=== PATIENT | male | born 1975 | race Caucasian/White ===

== ENCOUNTER → 2017-03-24 | Outpatient (CLI) | payer OTHER ==
--- NOTE | 2017-03-24 14:50 | MR ---
EXAMINATION TYPE: MR lumbar spine wo con DATE OF EXAM: 03/24/2017 COMPARISON: NONE HISTORY: low back pain TECHNIQUE: T1 and T2 axial and sagittal images of the lumbar spine are submitted. FINDINGS: There is no abnormal signal seen within the visualized spinal cord or paraspinal soft tissu es. Simple appearing renal cysts. At T12-L1 there is moderate degenerative disc disease and discogenic marrow changes. No disc herniati on or canal stenosis. Neural foramina patent. At L1-2 there is there is moderate degenerative disc disease with no disc herniation. No canal stenos is or foraminal encroachment. At L2-3 there is no degenerative disc disease with or evidence of disc herniation, canal stenosis, or foraminal encroachment. Mild hypertrophic change of the facets. At L3-4 there is no disc herniation or canal stenosis. There is mild broad-based central disc bulging . Neural foramina remain patent. At L4-5 there is moderate facet arthropathy. 6 mm synovial cyst extrinsic to the spinal canal adjacen t to the left facet joint. Broad-based disc bulging greater paracentrally and laterally to the right with mild to moderate right foraminal encroachment. Borderline to mild canal stenosis. At L5-S1 there is severe degenerative disc disease with discogenic marrow changes. Right paracentral disc bulging without canal stenosis. Neural foramina demonstrate very mild bilateral encroachment. IMPRESSION: 1. Multilevel degenerative disc disease with disc bulging at levels L3-S1 and borderline to mild rey l stenosis L4-L5. 2. Multilevel foraminal encroachment.
== END | disposition home or self-care (01) ==
LOC: RADMRIMAIN 14:14
PROVIDERS: ATTEND Anesthesiology Addiction Medicine
DX: M51.27 Other intervertebral disc displacement, lumbosacral region (principal); M51.37 Other intervertebral disc degeneration, lumbosacral region; M48.07 Spinal stenosis, lumbosacral region
CPT/HCPCS: 72148

== ENCOUNTER → 2019-04-26 | Outpatient (CLI) | payer OTHER ==
--- NOTE | 2019-04-26 08:46 | MR ---
MR lumbar spine wo con Low back pain Multiplanar, multiecho imaging of the lumbar spine was obtained without contrast on a 3 Brittney magnet. REFERENCE: Previous study dated 03/24/2017. FINDINGS: Paraspinal soft tissues are normal. Vertebral body height is maintained. There is a mild retrograde listhesis of L5 and S1 as well as L1 on L2, unchanged from previous. Alignment is otherwise normal. Cord signal is normal. The conus ends normally at the level of the L1-2 disc. At T12-L1, there is mild disc space loss and disc desiccation. The intervertebral foramina appear andreina sonably well-maintained. There is a diffuse disc displacement. This is effacing the thecal sac anteri janet. This hypertrophic change and capsulitis in the facets. At L1-2, there is disc space loss and disc desiccation. Intervertebral foramina appear reasonably wel l-maintained. There is a diffuse disc displacement effacing the thecal sac anteriorly. There hypertro phic change and capsulitis within the facets. At L2-3, the intervertebral foramina are well maintained. There is no significant compressive discopa thy. There is mild hypertrophic change and capsulitis within the facets. At L3-4, there is mild disc space loss and disc desiccation. Intervertebral foramina appear well main tained. There is a diffuse disc displacement mildly effacing the thecal sac. There is mild hypertroph ic change within the facets. There is mild trefoiling of the thecal sac. At L4-5, there is mild disc space loss and disc desiccation present. There is a minimal, diffuse disc displacement. There is right-sided intervertebral foraminal narrowing and to a lesser extent left-si ded intervertebral foraminal narrowing. There is a diffuse disc displacement effacing the thecal sac anteriorly. There are fairly marked hypertrophic changes and capsulitis within the facets. There is t refoiling of the thecal sac. At L5-S1, there is near complete loss of the disc space. There is disc desiccation. There is mild, bi lateral intervertebral foraminal narrowing. There is a diffuse disc displacement. There are hypertrop hic changes and capsulitis within the facets. IMPRESSION: 1. DIFFUSE DEGENERATIVE DISC DISEASE AND FACET ARTHROPATHY. 2. BILATERAL INTERVERTEBRAL FORAMINAL NARROWING, L4-5. 3. VARYING DEGREES OF CENTRAL CANAL COMPROMISE, MOST MARKED, L4-5.
== END | disposition home or self-care (01) ==
LOC: RADMRIMAIN 07:08
PROVIDERS: ATTEND Psychiatry & Neurology Neurology
DX: M99.73 Connective tissue and disc stenosis of intervertebral foramina of lumbar region (principal); M51.36 Other intervertebral disc degeneration, lumbar region; M46.96 Unspecified inflammatory spondylopathy, lumbar region
CPT/HCPCS: 72148

== ENCOUNTER → 2020-07-28 | Outpatient (CLI) | payer OTHER ==
--- NOTE | 2020-07-28 16:26 | MR ---
EXAMINATION TYPE: MR knee LT wo con DATE OF EXAM: 07/28/2020 COMPARISON: Outside left knee x-ray July 01, 2020 HISTORY: LT knee pain per order. Painful behind knee along with inner and outer aspect with swelling for 6 to 8 months after twisting injury per patient TECHNIQUE: Multiplanar, multisequence imaging of the left knee is performed without IV contrast. FINDINGS: MEDIAL MENISCUS: Posterior horn shows oblique and globular increased signal, extending towards the ce ntral body, there is extension to inferior surface central aspect coronal image 21 and sagittal image 25. LATERAL MENISCUS: Anterior and posterior horns are intact without tear. CRUCIATE LIGAMENTS: The anterior and posterior cruciate ligaments are intact and unremarkable. COLLATERAL LIGAMENTS: The medial collateral ligament and lateral collateral ligament complex are inta ct and unremarkable. EXTENSOR MECHANISM: Visualized quadriceps and patellar tendons are intact. EFFUSION: Moderate to large size suprapatellar joint effusion. POPLITEAL CYST: No popliteal/devi cyst. TRICOMPARTMENT SPACES: Mild to moderate patellofemoral compartment narrowing without significant spur ring. CARTILAGE: Some chondromalacia patella with thinning of articular cartilage along the inferior aspect of the posterior patellar pole. Full-thickness defect noted along the medial aspect axial image 24 f or reference. BONE MARROW SIGNAL: Focus of heterogeneous increased T2 signal involving inferior one half of the pat alla greatest along the medial aspect first lateral aspect with small subchondral cysts present. No s uspicious osseous edema on the anterior lateral femoral condyle. OTHER: No additional significant abnormality is appreciated. IMPRESSION: 1. At least an intrasubstance tear but suspected full-thickness tear posterior horn of medial meniscu s extending into the central body. 2. Fairly moderate to severe patellofemoral joint arthropathy inferior medial articulation as detaile d above with abnormal osseous edema at site of full-thickness cartilaginous loss. 3. Moderate to large-sized suprapatellar joint effusion.
== END | disposition home or self-care (01) ==
LOC: RADMRIMAIN 13:16
PROVIDERS: ATTEND Orthopaedic Surgery
DX: S83.242A Other tear of medial meniscus, current injury, left knee, initial encounter (principal); M12.862 Other specific arthropathies, not elsewhere classified, left knee; M25.462 Effusion, left knee

== ENCOUNTER → 2021-12-23 | Outpatient (CLI) | payer OTHER ==
--- NOTE | 2021-12-23 15:17 | MR ---
MRI CERVICAL SPINE: CLINICAL HISTORY: Cervicalgia. Neck pain into left shoulder down arm. TECHNIQUE: Multiplanar, multisequence imaging of the cervical spine is performed without IV contrast. COMPARISON: None. FINDINGS: Sagittal images of the cervical spine show the craniocervical junction to appear within nor mal limits. The cervical and upper thoracic spinal cord is normal in course, caliber, and signal. Th ere is grade 1 retrolisthesis C5 on C6 and to lesser degree C6 and C7. The vertebral body heights ar e normal. Mild to moderate disc space narrowing C5-C6 level. Mild disc space narrowing C4-C5 level. T he bone marrow signal intensity is within normal limits. Axial images show C2-C3 and C3-C4 levels to appear within normal limits. Axial images at C4-C5 level shows right paracentral/foraminal disc protrusion effacing anterolateral thecal sac and causing asymmetric mild to moderate right greater than left bilateral neural foraminal narrowing. Axial images at C5-C6 level shows spondylolisthesis and broad-based right paracentral disc protrusion effacing the anterolateral thecal sac with some uncovertebral facet degenerative changes greater on the left causing moderate left and mild right-sided neural foraminal narrowing. Axial images at C6-C7 level show spondylolisthesis with broad-based posterior disc protrusion mildly effacing the anterior thecal sac, there is asymmetric moderate to borderline severe left-sided neural foraminal narrowing due to foraminal disc protrusion component. Right-sided neural foramina is mildl y narrowed. Axial images at C7-T1 level appear within normal limits. IMPRESSION: Multilevel degenerative changes mid to lower cervical spine as detailed above. Eccentric disc herniation C6-C7 level may account for patient's left-sided radiculopathy type symptoms.
== END | disposition home or self-care (01) ==
LOC: RADMRIMAIN 14:28
PROVIDERS: ATTEND Psychiatry & Neurology Neurology
DX: M47.812 Spondylosis without myelopathy or radiculopathy, cervical region (principal); M50.223 Other cervical disc displacement at C6-C7 level
CPT/HCPCS: 72141

== ENCOUNTER → 2022-05-18 | Outpatient (CLI) | payer OTHER ==
[2022-05-18 08:13] VITALS: BP 157/89; PULSE 75; RESP 18; TEMP 98
--- NOTE | 2022-05-18 13:29 | P.PAINPG ---
Objective - Vital Signs Vital signs: Vital Signs Temp 98.0 F 05/18/22 08:08 Pulse 75 05/18/22 08:08 Resp 18 05/18/22 08:08 BP 157/89 05/18/22 08:08 Pulse Ox 96 05/18/22 08:08 FiO2 Intake & Output 05/17/22 05/18/22 05/18/22 18:59 06:59 18:59 Weight 99.79 kg PQRS Measure Charge Sheet Mode of Arrival: Ambulatory Comment: HISTORY OF PRESENT ILLNESS: 47 yr old male as a referral from [facility], operated by [facility] for severe and chronic cervical pain secondary to spondylolisthesis, disc protrusions, neuroforaminal stenoses and facet arthropathy for evaluation. Pt states their current pain level is 5/10 in intensity, intermittent, localized in the lower aspect of the cervical spine w intermittent tingling/numbness in hands & fingers x 2 yrs. Pain also radiates to L shoulder. Pain is provoked w movement (overhead reaching and lifting). Pain is alleviated w intraarticular injections of the L shoulder (80% pain relief x 3 weeks), home guided stretches daily, medications (Neurontin, Flexeril, [place]), repositioning and rest. PMH: OA PSH: LESIs x 20 SH: Current tobacco use, No ETOH use, No illicit drug use. On disability. FH: Non contributory All: NKDA Meds: See list REVIEW OF ORGAN SYSTEMS: CONSTITUTIONAL: No fevers or chills. No recent weight loss. NEUROLOGICAL: + numbness and tingling along the distal extremities. No seizure disorders or headaches. MUSCULOSKELETAL: + pain PSYCHIATRIC: Denies current depression or suicidal thoughts. Physical Examinations : Constitutional : Cooperative , not in acute distress . Neurologic : Cranial nerve II to XII intact. No focal neurological deficits. Psychiatric : alert & oriented x 3. Matching mood & appropriate affect. Judgment & insight intact. Musculoskeletal : Cervical Spine Motor strength in the deltoid and biceps: Normal right side. Normal Left side Motor strength biceps and the wrist extensors: Normal right side . Normal left side Motor strength in the triceps muscle: Normal right side. Normal left side Deep tendon reflexes: Normal at the biceps. Normal at Brachioradialis. Normal at triceps Vertebral body tenderness to deep palpation over C6, C7 Cervical facet loading test: positive bilaterally Spurling test: positive L over C6-C7 Neck distraction test: positive bilaterally Aria sign: positive bilaterally Lumbar spine Motor strength lower extremities ,thigh and legs 5/5 Right side , 5/5 Left side Deep tendon reflexes : Normal Knee Jerk. Normal Ankle Jerk Vertebral body tenderness over Lumbar facet Loading Test: positive Right / positive Left Range of motion of the lumbar spine Flexion 30 degrees, extension 10 degrees Straight Leg Raise test: Left/ Right positive at degree Candace test: positive right / positive left. Severe tenderness over the Sacroiliac joint on the Right / Left sides Gaenslen test: positive bilaterally Seated flexion test: positive bilaterally. Sacral spine : Severe tenderness over the Sacroiliac joint: right side / left side Range of motion: Flexion of the lumbar spine <60 degrees Range of motion: Extension of the lumbar spine <20 degrees Gaenslen's Test positive Hussein's Test positive Candace test: positive right side / left side Thigh Thrust Test Sacral Thrust Test Imaging: MRI without contrast of the cervical spine from 12/23/21 reviewed Assessment/ Plan : Cervical spondylosis Recommendation of TEDDY C6-C7 Recommendation of PT of the cervical spine 2-3 times per weekx 6 weeks re: M50.30. Pt may return to our clinic thereafter for a re evaluation and to explore additional treatment options, if necessary. All questions answered. I have spent greater than 30 minutes on patient care today. Dr Ray was available by phone for the evaluation of this patient. The time was used to review the medical records including relevant urine studies and Prescription history (MAPs), review of the available imaging, evaluation and examination of the patient, coordination of care with the medical staff and if applicable referring physicians, as well as creation of the medical record - Pain Location Neck Non-Pharmacological Interventions: Home Exercise, Inactivity, Position/Reposition, Stretching Pharmacological Interventions: PRN Medication, Scheduled Medication PQRS Narrative: Blood Pressure 157/89 Pain Intensity [Neck] 5 Scale Used Numeric (1 - 10) Hx Alcohol Use (MH) No Home Medications: Ambulatory Orders Cyclobenzaprine [Flexeril] 5 mg PO HS 05/18/22 Gabapentin [Neurontin] 400 mg PO TID 05/18/22 HYDROcodone/APAP 10-325MG [[place] 10-325] 10 mg PO Q4HR PRN 05/18/22 Controlled Substance Measures - Controlled Substance Measures Is patient prescribed a controlled substance at discharge?: No
== END ==
LOC: PNWHC3 07:41
PROVIDERS: ATTEND Specialist
DX: M50.10 Cervical disc disorder with radiculopathy, unspecified cervical region (principal); M47.22 Other spondylosis with radiculopathy, cervical region; M19.90 Unspecified osteoarthritis, unspecified site
CPT/HCPCS: 99211

== ENCOUNTER 2022-06-25 11:31 | Emergency (ER) | payer OTHER ==
[2022-06-25 12:16] VITALS: RESP 16; TEMP 98.8
[2022-06-25 12:42] LABS: Basophils # (A) 0.1 k/uL (0-0.2); Basophils % (A) 1 %; Eosinophils # (A) 0.5 k/uL (0-0.7); Eosinophils % (A) 4 %; HCT 46.7 % (39.0-53.0); HGB 14.7 gm/dL (13.0-17.5); Lymphocytes % (A) 16 %; MCH 29.1 pg (25.0-35.0); MCHC 31.4 g/dL (31.0-37.0); MCV 92.5 fL (80.0-100.0); Mean Platelet Volume 8.7; Monocytes # (A) 0.6 k/uL (0-1.0); Monocytes % (A) 5 %; Neutrophils # (A) 8.8 k/uL (1.3-7.7); Neutrophils % (A) 73 %; Platelet Count 198 k/uL (150-450); RBC 5.05 m/uL (4.30-5.90); WBC 12.1 k/uL (3.8-10.6)
[2022-06-25 12:49] LABS: Appearance,Urine Clear (Clear); Bilirubin,Urine Negative (Negative); Blood,Urine Negative (Negative); Color,Urine Yellow; Glucose,Urine (UA) Negative (Negative); Ketones,Urine Trace (Negative); Leukocyte Esterase,Urine Negative (Negative); Nitrite,Urine Negative (Negative); PH, Urine 6.5 (5.0-8.0); Protein,Urine Trace (Negative); Specific Gravity,Urine 1.028 (1.001-1.035)
[2022-06-25 12:51] LABS: INR 0.9 (<1.2); Partial Thromboplastin Time 26.6 sec (22.0-30.0); Prothrombin Time 9.7 sec (9.0-12.0)
[2022-06-25 12:58] LABS: ALT 18 U/L (4-49); AST 26 U/L (17-59); African American GFR (CKD) >90 (>60 ml/min/1.73 sqM); Albumin 4.4 g/dL (3.5-5.0); Alkaline Phosphatase 92 U/L (38-126); Anion Gap 12 mmol/L; Blood Urea Nitrogen 17 mg/dL (9-20); Calcium 9.3 mg/dL (8.4-10.2); Carbon Dioxide 25 mmol/L (22-30); Chloride 101 mmol/L (98-107); Glucose 83 mg/dL (74-99); Non-African American GFR(CKD) >90 (>60 ml/min/1.73 sqM); Potassium 4.5 mmol/L (3.5-5.1); Sodium 138 mmol/L (137-145); Total Bilirubin 0.3 mg/dL (0.2-1.3); Total Protein 6.9 g/dL (6.3-8.2)
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
[2022-06-25 14:44] VITALS: BP 128/80; PULSE 68
== END 2022-06-25 14:45 | disposition home or self-care (01) ==
LOC: EC 11:31
DX: S29.9XXA Unspecified injury of thorax, initial encounter (principal); M79.604 Pain in right leg; F17.200 Nicotine dependence, unspecified, uncomplicated; V89.2XXA Person injured in unspecified motor-vehicle accident, traffic, initial encounter
CPT/HCPCS: 36415; 93005; 80053; 84484; 85025; 85610; 85730; 81003; 73552; 73060; 73080; 73090; 73110; 73130; 73590; 72125; 71260; 74177; 99284; Q9967

== ENCOUNTER → 2022-07-10 | Outpatient (CLI) | payer OTHER ==
[2022-07-10 07:55] VITALS: BP 134/79; PULSE 78; RESP 18
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
== END ==
LOC: PNWHC3 07:28
PROVIDERS: ATTEND Specialist
DX: M47.812 Spondylosis without myelopathy or radiculopathy, cervical region (principal); G89.29 Other chronic pain; M50.30 Other cervical disc degeneration, unspecified cervical region
CPT/HCPCS: 99211

== ENCOUNTER 2022-07-25 06:22 | Day surgery (SDC) | payer OTHER ==
[2022-07-25 06:53] VITALS: RESP 16; TEMP 97.6
[2022-07-25] MEDS ORDERED: DEXAMETHASONE SOD PHOSPHATE 10 MG/ML 1 ML VIAL ONE (07:03)
[2022-07-25] MEDS ORDERED: IOPAMIDOL M200 10 ML VIAL ONE (07:03)
--- NOTE | 2022-07-25 07:21 | P.PCN ---
Date of Procedure: 07/25/22 Surgeon: Mariza Porter Pathology: none sent Condition: stable Disposition: PACU Description of Procedure: PROCEDURE 1. Cervical epidural steroid injection under fluoroscopic guidance, C7-T1 left paramedian approach. 2. Cervical epidurogram. : PREOPERATIVE DIAGNOSIS: Cervical radiculopathy, cervical spondylosis without myelopathy POSTOPERATIVE DIAGNOSIS: : Same as above ANESTHESIA: Local anesthesia with 1% lidocaine only EBL 0 PROCEDURE INDICATION: The patient with neck pain and radiculopathy unresponsive to conservative treatment consents for procedure. PROCEDURE DESCRIPTION / TECHNIQUE: The patient was seen and identified in the preoperative area. Risks, benefits, complications, including but not limited to infections ,bleeding , allergic reactions to the medications ,and not complete pain relief, and alternatives were discussed with the patient, the patient agreed to proceed with the procedure and signed the consent. Patient was taken to the OR and time out was completed. The patient was placed in the prone position on the procedure table. A pillow was placed under the patients chest to increase the flexion of the cervical spine . The cervical area was prepped and draped in the usual sterile fashion. Vital signs were closely monitored during the procedure. Conscious sedation was used during the procedure to decrease patients anxiety. Using anterior-posterior fluoroscopy, the C7-T1 interlaminar space was identified and the skin over this site was marked and then infiltrated with 1% lidocaine subcutaneously. Subsequently, a 20-gauge 3-1/2-inch Tuohy epidural needle was inserted and advanced toward the epidural space by means of loss of resistance to air technique and guided by AP and lateral fluoroscopy. The needle tip contacted the lamina of T1 vertebra first, then it was walked off bone and into the epidural space using the loss of to air and fluoroscopic guidance to identify the epidural space. The correct needle position in the epidural space was verified with the injection of 1 mL of the water soluble contrast dye Isovue and observing an excellent epidurogram with the epidural spread of the dye, after negative aspiration for blood and CSF and in the absence of paresthesias. Again after negative aspiration, I injected 15 mg of Decadron.. Needle then was withdrawn intact, skin was cleansed, and bandages were applied. A copy of the needle placement picture was saved to the fluoroscopy machine.
[2022-07-25 07:34] VITALS: BP 148/71; PULSE 72
--- NOTE | 2022-07-25 08:25 | FL ---
Fluoroscopy HISTORY: Pain 8 seconds fluoroscopy time supplied to the referring clinician. 1 intraoperative C-arm images docume nt the procedure. See dictated report from anesthesia.
== END 2022-07-25 07:40 | disposition home or self-care (01) ==
LOC: ORPAIN 06:22
PROVIDERS: ATTEND Anesthesiology
DX: M47.22 Other spondylosis with radiculopathy, cervical region (principal)
CPT/HCPCS: 62321; J1100; Q9966

== ENCOUNTER → 2022-08-11 | Outpatient (CLI) | payer OTHER ==
--- NOTE | 2022-08-12 11:35 | MR ---
EXAMINATION TYPE: MR lumbar spine wo con DATE OF EXAM: 08/11/2022 9:50 PM COMPARISON: Lumbar spine 04/26/2019 CLINICAL INDICATION:Male, 47 years old with history of M47.26; TECHNIQUE: Multi planar, multi sequence imaging was performed utilizing: T1-weighted, T2-weighted, a nd turbo inversion recovery imaging of the lumbar spine. IV Contrast: None FINDINGS: Alignment: The lumbar vertebral bodies have preserved heights and alignment. Cord: The conus medullaris and the distal spinal cord appear unremarkable with regards to their signa l intensity and morphology. Bones/Discs: Scattered inversion recovery reactive edema seen along the endplates Modic endplate thayer ges. L2 vertebral body probable vertebral body hemangioma which is high T1-T2 signal. Multilevel dege nerative disc disease is noted and most pronounced at the L5-S1 and the lower thoracic spine. Multile alberto disc desiccation is present. L1-L2: Disc bulge and facet joint arthropathy result in mild spinal canal and mild bilateral neural f oraminal stenosis. L2-L3: No significant disc pathology. Spinal canal is patent. The neural foramen are patent. Facet demetra int arthropathy is at this level. L3-L4: Disc bulge and facet joint arthropathy result in mild spinal canal and mild bilateral neural f oraminal stenosis. L4-L5: Disc bulge and facet joint arthropathy result in mild spinal canal and mild bilateral neural f oraminal stenosis. L5-S1: Facet joint arthropathy with mild bilateral neural foraminal stenosis. The spinal canal is pat ent. Other findings: Right renal high T2 cyst. IMPRESSION: 1. No definitive evidence of disc herniation or significant spinal canal stenosis. 2. Multilevel disc degeneration with associated osteoarthritic changes which have mildly progressed from 2019.
== END | disposition home or self-care (01) ==
LOC: RADMRIMAIN 21:30
PROVIDERS: ATTEND Nurse Practitioner Family
DX: M47.27 Other spondylosis with radiculopathy, lumbosacral region (principal); M51.16 Intervertebral disc disorders with radiculopathy, lumbar region; M99.74 Connective tissue and disc stenosis of intervertebral foramina of sacral region
CPT/HCPCS: 72148

== ENCOUNTER 2022-09-05 06:31 | Day surgery (SDC) | payer OTHER ==
[2022-09-05 07:01] VITALS: RESP 16; TEMP 98.3
[2022-09-05] MEDS ORDERED: IOPAMIDOL M200 10 ML VIAL ONE (07:24)
[2022-09-05] MEDS ORDERED: DEXAMETHASONE SOD PHOSPHATE 10 MG/ML 1 ML VIAL ONE (07:24)
--- NOTE | 2022-09-05 07:34 | P.PCN ---
Date of Procedure: 09/05/22 Procedure(s) Performed: . PROCEDURE 1. Cervical epidural steroid injection under fluoroscopic guidance, C6-7 (fluoroscopy images available in the radiology department ) 2. Cervical epidurogram. PREOPERATIVE DIAGNOSIS: 1- Cervical Degenerative Disc Diseases 2- Cervical radiculopathy., 3-cervical spondylosis with cervical Facet arthropathy without myelopathy.4-cervical spinal stenosis POSTOPERATIVE DIAGNOSIS: : 1- Cervical Degenerative Disc Diseases , 2- Cervical radiculopathy. 3-,cervical spondylosis with cervical Facet arthropathy without myelopathy. 4-cervical spinal stenosis ANESTHESIA: Local anesthetic with lidocaine 1% 3 mL only. EBL 0 PROCEDURE INDICATION: The patient with neck pain and radiculitis unresponsive to conservative treatment consents for procedure. PROCEDURE DESCRIPTION / TECHNIQUE: The patient was seen and identified in the preoperative area. Risks, benefits, complications, including but not limited to infections ,bleeding , allergic reactions to the medications ,and not complete pain releife, and alternatives were discussed with the patient, the patient agreed to proceed with the procedure and signed the consent. Patient was taken to the OR and time out was completed. The patient was placed in the prone position on the procedure table. A pillow was placed under the patients chest to increase the cervical interlaminar space. The cervical area was prepped and draped in the usual sterile fashion. Vital signs were closely monitored during the procedure.. Using anterior-posterior fluoroscopy, the C6-7 interlaminar space was identified and the skin over this site was marked and then infiltrated with 1% lidocaine subcutaneously. Subsequently, a 20-gauge 3-1/2-inch Tuohy epidural needle was inserted and advanced toward the epidural space by means of the ``hanging-drop technique and guided by AP and lateral fluoroscopy. The correct needle position in the epidural space was verified with the injection of 2 mL of the water soluble contrast dye Isovue-200 and observing an excellent epidurogram with the epidural spread of the dye, after negative aspiration for blood and CSF and in the absence of paresthesias. then, mixture containing 20 mg Dexamethasone and 2 ml of preservative-free normal saline injected and a washout of epidurogram was seen. Needle was withdrawn intact, skin was cleansed, and bandages were applied. Complications= none. Disposition= patient was placed in supine position and transferred to the recovery room area in stable condition and there was no evidence of upper or lower extremity motor or sensory deficit after the procedure patient was discharged from recovery room after discharge criteria met and home discharge instructions was given by the staff and patient will follow with the pain clinic in 2-4 weeks
[2022-09-05 07:50] VITALS: BP 114/70; PULSE 61
--- NOTE | 2022-09-05 08:15 | FL ---
EXAMINATION TYPE: FL guided pain mgmt statistic DATE OF EXAM: 09/05/2022 CLINICAL HISTORY: Neck pain. TECHNIQUE: Fluoroscopy. COMPARISON: None. FINDINGS: Fluoroscopic guidance was provided during pain relief procedure performed by Dr. Ray . A total of 2 seconds of fluoroscopic time was utilized during the procedure and 1 spot images are acquired. Single image acquired shows needle localization at C7 level. IMPRESSION: As Above.
== END 2022-09-05 07:56 | disposition home or self-care (01) ==
LOC: ORPAIN 06:31
PROVIDERS: ATTEND Specialist
DX: M50.323 Other cervical disc degeneration at C6-C7 level (principal); M47.22 Other spondylosis with radiculopathy, cervical region; M12.88 Other specific arthropathies, not elsewhere classified, other specified site; M48.02 Spinal stenosis, cervical region
CPT/HCPCS: 62321; J1100; Q9966

== ENCOUNTER → 2022-09-12 | Outpatient (CLI) | payer OTHER ==
--- NOTE | 2022-09-12 09:16 | MR ---
EXAMINATION TYPE: MR thoracic spine wo con DATE OF EXAM: 09/12/2022 7:42 AM COMPARISON: No priors. INDICATION: Patient age:Male; 47 years old; Reason for study: M54.14 RADICULOPATHY T,M54.16 RADICULOPATHY LUMBAR; TECHNIQUE: Multi planar, multi sequence imaging was performed utilizing: T1-weighted and T2-weighted of the thoracic spine. The patient was not given Gadolinium. IV Contrast: None FINDINGS: The thoracic vertebral bodies have preserved heights and alignment. The osseous structure have normal signal intensity. Thoracic spinal cord appears unremarkable. Scattered osteophyte formation and disc desiccation is present and Modic endplate changes noted. There is some inversion recovery signal in the anterior aspects of T8-T12 likely on a reactive degenerative basis. T2-T3 right central disc protrusion without significant spinal canal stenosis. The neural foramen are patent. T3-T4: Eccentric right bulging/osteophyte, without significant spinal canal stenosis. The neural fora men are patent. T4-T5: Eccentric right bulging/osteophyte, without significant spinal canal stenosis. The neural fora men are patent. T5-T6: Disc bulge without significant spinal canal stenosis. The neural foramen are patent. T6-T7: Disc bulge/osteophyte without significant spinal canal stenosis. The neural foramen are patent . T8-T9: Right central annular tear without significant spinal canal stenosis. The neural foramen are p atent. T11-T12: Disc bulge without significant spinal canal stenosis. The neural foramen are patent. IMPRESSION: Mild disc degeneration changes with scattered osteophyte and/or disc bulging without significant spin al canal or neural foraminal stenosis.
== END | disposition home or self-care (01) ==
LOC: RADMRIMAIN 07:00
PROVIDERS: ATTEND Orthopaedic Surgery
DX: M51.14 Intervertebral disc disorders with radiculopathy, thoracic region (principal); M25.78 Osteophyte, vertebrae
CPT/HCPCS: 72146

== ENCOUNTER → 2022-09-21 | Outpatient (CLI) | payer OTHER ==
[2022-09-21 07:56] VITALS: BP 133/72; PULSE 77; RESP 18; TEMP 98.2
--- NOTE | 2022-09-21 14:30 | P.PAINPG ---
PQRS Measure Charge Sheet Comment: A 47 yr old male with a history of severe and chronic neck pain secondary to cervical DDD and spondylosis with facet arthropathy without myelopathy presents today for evaluation s/p FRANSISCO C6-C7. Pt states he experienced 0 % pain relief s/p procedure. Pain level is at 10 /10 in intensity when driving bumpy roads, constant, localized in the lower cervical spine, sharp in character w shooting towards the BL shoulders. Pain is alleviated with medications (Neurontin, Flexeril from Dr Roque), injections, heat which provokes pain, home exercise as tolerated, repositioning and rest. Interventional pain procedures completed include FRANSISCO C6-C7 Patient is currently on Neurontin, Flexeril Patient denies any side effects of the medication(s), denies excessive drowsiness or sleepiness, denies suicidal ideation and reports that the current pain medication is helping to control the pain and improve activities of daily living. Patient denies any motor or sensory deficits. Patient denies any fever or night sweats, denies any change in the bowel movements or urination. Physical Examination: -Constitutional: Cooperative. Not in acute distress . - Neurologic: Cranial nerve II to XII intact. No focal neurological deficits. - Psychatric: Alert & oriented x 3. Matching mood & appropriate affect. Judgment and insight intact. - Musculoskeletal: Cervical spine: Muscle bulk/ tone/ strength in the bilateral upper extremities normal Vertebral body tenderness to palpation over Spurling test positive Distraction test positive Facet loading test positive TTP over BL C4-C5, C5-C6 facets Thoracic spine Muscle bulk / tone/ strength in the bilateral paraspinal muscles normal Vertebral body tender to palpation over Facet loading test positive Lumbar spine: Motor bulk/ tone/ strength lower extremities , thigh and legs : 5/5 Deep tendon reflexes : Normal Knee Jerk. Normal Ankle Jerk . Vertebral body tenderness to palpation over Lumbar Facet Loading Test positive Straight Leg Raise: positive at 30 degrees right side/ left side Gaenslen's Test positive Sacral spine : Severe tenderness over the Sacroiliac joint: right side / left side Range of motion: Flexion of the lumbar spine <60 degrees Range of motion: Extension of the lumbar spine <20 degrees Gaenslen's Test positive Candace test: positive right side / left side Thigh Thrust Test Sacral Thrust Test Assessment and plan: Chronic neck pain secondary to cervical DDD, spondylosis with facet arthropathy without myelopathy Recommendation of BL facet block of the medial branches C4-C5, C5-C6 #1. May need a series of injections, up until RFA, for optimal pain relief. Risks, benefits of procedure discussed and pt verbalized understanding. Denies anticoagulant use or medical history of diabetes. All patient questions answered I have spent less than 30 minutes on patient care today. Dr Ray was available by phone for the evaluation of this patient. The time was used to review the medical records including relevant urine studies and Prescription history (MAPs), review of the available imaging, evaluation and examination of the patient, coordination of care with the medical staff and if applicable referring physicians, as well as creation of the medical record - Pain Location Neck Non-Pharmacological Interventions: Heat, Home Exercise, Inactivity, Position/Reposition, Stretching Pharmacological Interventions: Epidural, PRN Medication, Scheduled Medication PQRS Narrative: Hx Alcohol Use (MH) No Home Medications: Ambulatory Orders Cyclobenzaprine [Flexeril] 5 mg PO HS 05/18/22 Gabapentin [Neurontin] 400 mg PO TID 05/18/22 HYDROcodone/APAP 10-325MG [[place] 10-325] 10 mg PO Q4HR PRN 05/18/22 Controlled Substance Measures - Controlled Substance Measures Is patient prescribed a controlled substance at discharge?: No
== END ==
LOC: PNWHC3 07:27
PROVIDERS: ATTEND Specialist
DX: M47.812 Spondylosis without myelopathy or radiculopathy, cervical region (principal); M50.30 Other cervical disc degeneration, unspecified cervical region
CPT/HCPCS: 99211

== ENCOUNTER 2022-10-20 08:30 | Day surgery (SDC) | payer OTHER ==
[2022-10-20] MEDS ORDERED: LACTATED RINGERS 1,000 ML IV SCH (08:48)
[2022-10-20] MEDS ORDERED: LIDOCAINE 1% (10MG/ML) FOR IV START INTRADERMA PRN (08:48)
[2022-10-20 08:54] VITALS: RESP 16; TEMP 97.3
[2022-10-20] MEDS ORDERED: methylPREDNISolone ACETATE 40 MG/ML 1 ML VIAL ONE (09:02)
[2022-10-20] MEDS ORDERED: ROPIVACAINE 5 MG/ML 20 ML AMPULE ONE (09:02)
--- NOTE | 2022-10-20 09:26 | P.PCN ---
Date of Procedure: 10/20/22 Procedure(s) Performed: PREOPERATIVE DIAGNOSIS: 1-Cervical Spondylosis with Facet Arthropathy.without myelopathy. 2-cervical degenerative disc disease POSTOPERATIVE DIAGNOSIS: Same as preoperative diagnosis. PROCEDURES: Diagnostic bilateral C4 , C5 , C6 medial branch blocks, with fl uoroscopic guidance (fluoroscopy images available in radiology department ) ( to target the facet joint at bilateral C4- 5 , C5- 6 )# 1st ANESTHESIA: Local anesthesia with ropivacaine 0.5% 6 ML only . EBL: Minimal PROCEDURE INDICATION: The patient with neck pain secondary to cervical arthropathy unresponsive to more conservative treatments. PROCEDURE DESCRIPTION / TECHNIQUE: The patient was seen and identified in the preoperative area. Risks, benefits, complications, and alternatives were discussed with the patient, the patient agreed to proceed with the procedure and signed the consent. IV was started. Vital signs remained stable throughout the procedure. Patient was taken to the OR and time out was completed. The patient was placed in the prone position on the procedure table. A pillow was placed under the patients chest to increase the cervical interlaminar space. The cervical area was prepped and draped in the usual sterile fashion. Critical pause was taken. Vital signs were closely monitored during the procedure. Using cross-table lateral fluoroscopy, the centroid of the trapezoid of right C 4 , C5 and C6, was identified, marked, and localized with 0.5% Ropivacaine 1 ml at each level for skin and Sub Q infiltrations . Subsequently, a 22 G 3 spinal needle was advanced guided by fluoroscopy to the centroid of the trapezoid of Right C4 , C5, C6 . [place] tip position was confirmed at the centroid of the trapezoids of Right C4 , C5 ,C6 with anteroposterior fluoroscopy. Subsequently, 1.5 ml of preservative-free Ropivacaine 0.5% mixed with Depo-Medrol 20 mg and half ml of the mixture was injected after negative aspiration for blood and CSF. [place] was then removed intact the same procedure was repeated at the left C4 , C5 , and C6 levels. COMPLICATIONS: No acute complications. DISPOSITION / PLANS: The patient was placed in a supine position and transferred to the recovery area in a stable condition for observation and was discharged from the recovery room after meeting discharge criteria. Home discharge instructions given to the patient by the staff. The patient was reexamined prior to discharge. The patient will schedule a follow up in the clinic in 2-4 weeks.
[2022-10-20 09:31] VITALS: BP 122/82; PULSE 79
--- NOTE | 2022-10-20 09:56 | FL ---
Intraoperative/procedural fluoroscopic services were provided for bilateral C/T facet block. Total fl uoroscopy time is 14.8 seconds with a total of 5 submitted images to PACS. Please see the operative n ote for further details.
== END 2022-10-20 09:39 | disposition home or self-care (01) ==
LOC: ORPAIN 08:30
PROVIDERS: ATTEND Specialist
DX: M50.321 Other cervical disc degeneration at C4-C5 level (principal); M47.812 Spondylosis without myelopathy or radiculopathy, cervical region
CPT/HCPCS: 64490; 64491 ×2; J1030; J2795

== ENCOUNTER → 2023-02-01 | Outpatient (CLI) | payer OTHER | END | disposition home or self-care (01) | LOC: LABWHC1 09:03 | PROVIDERS: ATTEND Orthopaedic Surgery | DX: Z01.812 Encounter for preprocedural laboratory examination (principal); M47.26 Other spondylosis with radiculopathy, lumbar region; M48.061 Spinal stenosis, lumbar region without neurogenic claudication | CPT/HCPCS: 87070 ==

== ENCOUNTER 2023-02-05 09:03 | Day surgery (SDC) | payer OTHER ==
[2023-01-30 12:20] VITALS: BMI 25.5
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
[~2023-02-05 09:03] MED LIST: ACETAMINOPHEN TAB 500 MG TAB PO PRN; DEXAMETHASONE SOD PHOSPHATE 4 MG/ML 1 ML VIAL IV ONE; GABAPENTIN 300 MG CAP PO PRN; LACTATED RINGERS 1,000 ML IV SCH; ONDANSETRON 4 MG/2 ML VIAL IVP ONE; ONDANSETRON 4 MG/2 ML VIAL IVP PRN; TRANEXAMIC ACID IN NACL,ISO-OS 1,000 MG in SALINE 1 100ML.BAG IVPB PRN
[2023-02-05] MEDS ORDERED: LACTATED RINGERS 1,000 ML IV ONE ×2 (09:35→09:38)
[2023-02-05 09:46] VITALS: RESP 16; TEMP 98
[2023-02-05] MEDS ORDERED: SUCCINYLCHOLINE CHLORIDE 200 MG/10 ML VIAL IV ONE (11:51)
[2023-02-05] MEDS ORDERED: PROPOFOL 10 MG/ML 20 ML VIAL IV ONE (11:51)
[2023-02-05] MEDS ORDERED: fentaNYL (PF) 50 MCG/ML 2 ML AMP ONE (11:51)
[2023-02-05] MEDS ORDERED: TRANEXAMIC ACID IN NACL,ISO-OS 1,000 MG/100 ML BAG ONE (11:51)
[2023-02-05] MEDS ORDERED: LIDOCAINE 2% INJ 20 MG/ML (2 ML VIAL) ONE (11:51)
[2023-02-05] MEDS ORDERED: ROCURONIUM 10 MG/ML (5 ML VIAL) IV ONE (11:51)
[2023-02-05] MEDS ORDERED: GLYCOPYRROLATE 0.2 MG/ML 2 ML VIAL ONE (11:51)
[2023-02-05] MEDS ORDERED: MIDAZOLAM 2 MG/2 ML VIAL ONE (11:51)
[2023-02-05] MEDS ORDERED: NEOSTIGMINE 1 MG/ML 10 ML VIAL ONE (11:51)
[2023-02-05] MEDS ORDERED: PHENYLEPHRINE-0.9% NACL SYG 1,000 MCG/10 ML SYRINGE ONE (11:51)
[2023-02-05] MEDS ORDERED: THROMBIN (BOVINE) 5,000 UNIT VIAL TOPICAL ONE (12:41)
[2023-02-05] MEDS ORDERED: GELATIN SPONGE,ABSORB (LARGE) 1 EACH SPONGE TOPICAL ONE (12:41)
--- NOTE | 2023-02-05 14:27 | XR ---
Intraoperative/procedural fluoroscopic services were provided for posterior lumbar fusion at L5-S1. T otal fluoroscopy time is 2.26 minutes with a total of 4 submitted images to PACS. Total DAP 26.072. P lease see the operative note for further details.
[2023-02-05] MEDS ORDERED: HYDROmorphone 1 MG/ML 1 ML SYRINGE IVP PRN (14:39)
[2023-02-05] MEDS ORDERED: CYCLOBENZAPRINE 5 MG TAB PO PRN (14:39)
[2023-02-05] MEDS ORDERED: HYDROcodone/APAP 10-325MG 1 EACH TAB PO PRN (14:39)
[2023-02-05] MEDS ORDERED: HYDROmorphone 0.5 MG/0.5 ML SYRINGE IVP PRN (14:39)
[2023-02-05] MEDS ORDERED: SENNOSIDES-DOCUSATE SODIUM 1 EACH TAB PO PRN (14:39)
[2023-02-05] MEDS ORDERED: MAGNESIUM HYDROXIDE 2,400 MG/10 ML CUP PO PRN (14:39)
[2023-02-05] MEDS ORDERED: HYDROcodone/APAP 5-325MG 1 EACH TAB PO PRN (14:39)
[2023-02-05] MEDS: HYDROmorphone 0.5 MG/0.5 ML SYRINGE IVP PRN ×2 (14:52→15:01)
[2023-02-05] MEDS ORDERED: fentaNYL (PF) 50 MCG/1 ML VIAL IVP ONE ×2 (15:12→15:25)
[2023-02-05] MEDS ORDERED: ONDANSETRON 4 MG/2 ML VIAL IVP ONE (15:25)
[2023-02-05] MEDS ORDERED: HYDROcodone/APAP 10-325MG 1 EACH TAB PO ONE (16:18)
[2023-02-05 17:05] VITALS: BP 134/71; PULSE 87
--- NOTE | 2023-02-05 17:48 | P.OP ---
Date of Procedure: 02/05/23 Preoperative Diagnosis: 1. L5-S1 severe spondylosis with moderate stenosis central and foraminal 2. L1-S1 spondylosis with stenosis 3. Lumbar radiculopathy 4. Low back pain Postoperative Diagnosis: 1. L5-S1 severe spondylosis with moderate stenosis central and foraminal 2. L1-S1 spondylosis with stenosis 3. Lumbar radiculopathy 4. Low back pain Procedure(s) Performed: 1. L5-S1 posteriolateral and interbody fusion (77275) 2. Instrumentation L5-S1 (32293) 3. Insertion of biomechanical device (95638) 4. Decompression and hemilaminectomy, complete facetectomy and foraminotomy for decompresison and cage placement (34447) Use of IONM Use of IO microscope Implants: -Globus creo galileo and screw system -Mirabus expandable cage x1 -MagnatOs, Allocell, Autograft Anesthesia: PATRICEA Surgeon: Alejandro Madsen Preventive Medicine Specialist #1: Lauri Mckenzie (Was present and assisted with all aspects of the case from positioning to dressing placement. ) Estimated Blood Loss (ml): 100 IV fluids (ml): 1,700 Urine output (ml): 250 Pathology: none sent Condition: stable Disposition: PACU Indications for Procedure: Mr. Treadwell is presenting for evaluation of low back pain, LE pain, difficulty with ambulation secondary to pain and debility. It was my pleasure to have seen and examined Mr. Treadwell. In our visit today we have had a chance to go over subjective complaints, physical examination findings and treatments including the natural course history without intervention and various interventional options. The patients imaging demonstrates XRay Lumbar Multiview (AP, Lateral, Flexion, Extension) with AP pelvis; 5 views taken at [facility] on 07/18/22 of Lumbar Spine and Pelvis: IMages reviewed with the patient demonstrate L5-S1 spondylosis that is severe with collapse of the disc space near 100%. There is severe facet arthropathy associated with this as well as L4-5 and L5-S1. No fractures. LL: 56 deg. PI: 60 deg. No lesions noted. AP pelvis shows congruent pelvis no fracture. [facility] of LumbarSpine: Images reviewed with pt. Demonstrate again severe spondylosis L5-S1, there is complete collapse of the disc space, however autofusion has not happened and there are modic changes in the endplates. There is spondylosis noted through the lumbar spine to varying degrees. Severe noted at L1-2 and T12-L1 as well. There is moderate central and b/l foraminal stenosis at L5-S1 related to these findings as well as facet hypertrophy and ligamental hypertrophy. No fractures. NO lesions noted. On physical exam, Mr. Treadwell demonstrates: patient reports increasing diffuse lumbar pain with no new injury or trauma to indicate an exact onset of his symptoms. Overall the patient has seen a progressive increase in symptoms since their onset. IN addition to his lumbar pain the patient does continue to complain of bilateral lower extremity radiculopathy. With this the patient complains of numbness and tingling about his bilateral thighs as well. Mr. Treadwell symptoms are exacerbated with any standing, ambulation, use of the extremities, or flexion/extension/twisting of the neck and back, due to this they notes that it is increasingly difficult for Mr. Treadwell to complete many of their daily tasks. Overall he notes that he is very limited with his daily functionality and is unable to complete most daily tasks. Patient is having severe sleep disturbances as well due to their ongoing pain and associated symptoms. Regarding treatments, the patient has previously trialed all abovementioned treatment modalities without any relief. I have explained to the patient that as their condition progresses it will cause further neurological deficits and eventual paralysis. Based on the patients imaging, physical exam, and the rapid progression and disabling nature of their symptoms, at this time I recommend surgery in the form of a: L5-S1 Transforaminal Lumbar Interbody Fusion. I discussed the risk and benefits of this procedure at length with Mr. Treadwell. The patient agreed to considered pursuing the procedure abovementioned. Prior to surgery, she should follow up with her PCP (Cardio, ID, IM etc) for clearance. Questions were invited and answered, and the patient wishes to proceed as outlined below. Currently, I am recommendin.L5-S1 Transforaminal Lumbar Interbody Fusion Description of Procedure: L5-S1 MIS TLIF The patient was seen and examined in the preoperative area. All preoperative protocols were followed. Informed consent was obtained risks and benefits of the procedure were discussed at length. Risks including bleeding infection damage to the surrounding tissue and risk of reoperation were discussed with the patient. Risk of anesthesia up to and including was a discussed with the patient. These are outlined in the risk review. They were willing to accept these risks and all the risks of surgery. The patient was given a weight-based dose of antibiotics in the form of 2 g Ancef. The patient was seen and evaluated by the anesthesia team who deemed them fit for surgery. The site was marked, the patient was willing to proceed with the procedure. The patient was transferred to the operative suite by the Department of anesthesia. They were then drifted off to sleep by the department anesthesia and GETA was performed. The patient tolerated this well. Tanner catheter was placed by nursing staff, a-traumatically. Once confirmation of lines and ventilation the patient was transferred to a prone Hong table very carefully. All bony prominences including wrists, elbows, axilla, chest, hips, and thighs, and feet were padded very well. Special attention was paid to the genitalia, and these were padded accordingly. SCDs were placed on bilateral lower extremities and were connected. Arms were well padded and placed on arm boards up and out in the 90/90 position. Once in position, again we confirmed good ventilation capabilities and that lines were running appropriately. The patients Lumbar spine was then exposed. 1010s were placed outlining the incision site. Standard alcohol was used to clean the incision site and allowed to dry. C-arm was used to needle localize the pedicles at L5-S1 and bio-ej the patient and confirm level for incision which was marked with a skin marker. Operative briefing was performed with all teams and everyone in agreement to proceed. The patient was then prepped and draped in a normal sterile fashion. Timeout was then performed, and all parties agreed with the procedure to be performed. C arm was then used to target pedicles bilaterally at L5-S1. Jamshidi was used and bi-planar fluoroscopy was used to access L5 pedicles. Once accessed wires were placed in their void. This was repeated at S1 bilaterally. Skin incision was then made along these wires and perfect scalpel was used over the wire to create a path and measure screw length. Screws were then placed over wires on the contralateral side. Once screw was at the back of the body wire was removed. The screws were confirmed to be in good position on AP and lateral. We then tested screws and they all tested above 20 mA. Attention was then turned to interbody fusion at L5-S1. Tubular retractor system was placed at the interspace of L5-S1 using biplanar c arm. Once in position and dilated up to 26mm tube it was locked to the bed and confirmed in good position. Microscope was then brought in for visualization. Limited myomectomy was performed and laminectomy, complete facetectomy and foraminotomy performed at L5-S1 using high speed jeannie and Kerrison rongure. The ligamentum was removed and dural sac decompressed. Exiting and traversing roots visualized and decompressed. Neural elements were then protected, and disc space accessed with an osteotome. Sequential shaving then done under lateral imaging and complete discectomy performed using perez, pituitary and curette. Once good bleeding endplates accomplished and good height presybeterian with trials, a combination of autograft, allograft and synthetic placed anterior in the disc space. The cage was then selected and impacted into place under lateral imaging. The cage was then expanded restoring height, lordosis and alignment. The cage was backfilled with bone graft through a funnel. The bench examiner removed and area inspected. Good cage placement, stable cage and no injuries. Area was irrigated copiously, and meticulous hemostasis achieved. The tubular retractor was then removed under direct visualization. Screws were then selected and placed over the previously placed wires on the ipsilateral side. This was done in the fashion described above. Screws were then tested, and all tested above 20 mA. Shells were then placed on the tabs. Galileo length was then measured, and rods selected. They were then placed through the MIS tabs, subfascial. These were then locked into place with set screws and final tightened. Galileo holders removed and images taken showing good placement of rods good lordosis and presybeterian of height. Tabs were broken off. Wounds were then copiously irrigated with NSS. [place] used for TP decortication and mixture of MagnatOs, allograft and autograft packed posterolateral. Facia was then closed with 0 Vircyl on a Scorpion suture passer for MIS closure. Deep subq closed with 0 Vicryl. Superficial subq closed with 2-0 Vicryl and skin with mio. Wound edges approximated very well. Wound was then cleaned with alcohol and dried. Wounds dressed in Optifoam dressings. The patient was then transferred off the table back to their hospital bed a- traumatically. They were extubated by the department of anesthesia. They were then transferred to PACU in stable condition having tolerated the procedure with no complications.
[2023-02-05] MEDS ORDERED: ACETAMINOPHEN TAB 325 MG TAB PO SCH (18:00)
== END 2023-02-05 17:00 | disposition home or self-care (01) ==
LOC: OR 09:03
PROVIDERS: ATTEND Orthopaedic Surgery
DX: M47.26 Other spondylosis with radiculopathy, lumbar region (principal); M48.01 Spinal stenosis, occipito-atlanto-axial region; M48.061 Spinal stenosis, lumbar region without neurogenic claudication; Z82.49 Family history of ischemic heart disease and other diseases of the circulatory system; Z87.891 Personal history of nicotine dependence; Z79.899 Other long term (current) drug therapy
CPT/HCPCS: 22853; 22633; 20931; 20936; 86900; 86901; 86850; 72100; C1713; C1762; J1100; J0690; J2405; J1170; J3010

== ENCOUNTER → 2023-09-12 | Outpatient (CLI) | payer OTHER ==
--- NOTE | 2023-09-12 14:23 | MR ---
MRI CERVICAL SPINE: CLINICAL HISTORY: Neck pain, stiffness, BUE radiculopathy. Symptoms present for 2 to 3 years. Cervica lgia and other cervical disc displacement per order. TECHNIQUE: Multiplanar, multisequence imaging of the cervical spine is performed without IV contrast. COMPARISON: Cervical spine MRI December 23, 2021. Outside cervical spine x-ray August 27, 2023 FINDINGS: Sagittal images of the cervical spine show the craniocervical junction to remain within nor mal limits. The cervical and upper thoracic spinal cord is normal in course, caliber, and signal. Th ere is grade 1 retrolisthesis C5 on C6 and to lesser degree C4 on C5 and C6 on C7 redemonstrated. Th e vertebral body heights remain normal. Mild to moderate disc space narrowing C5-C6 level. Mild disc space narrowing C5-C6 level. The bone marrow signal intensity is within normal limits. Axial images show C2-C3 and C3-C4 levels to remain within normal limits. Axial images at C4-C5 level shows right paracentral/foraminal disc protrusion effacing anterolateral thecal sac and causing asymmetric moderate right greater than left bilateral neural foraminal narrowi ng. No significant change from prior. Axial images at C5-C6 level shows spondylolisthesis and broad-based right paracentral disc protrusion effacing the anterolateral thecal sac with some uncovertebral facet degenerative changes greater on the left causing moderate bilateral neural foraminal narrowing. No significant change from prior. Axial images at C6-C7 level show spondylolisthesis with mild broad-based posterior disc protrusion mi ldly effacing the anterior thecal sac, there is asymmetric moderate to borderline severe left-sided n eural foraminal narrowing due to foraminal disc protrusion component. Right-sided neural foramina is mildly narrowed. No significant change from prior. Axial images at C7-T1 level remain within normal limits. IMPRESSION: Multilevel spondylolisthesis and degenerative changes in the mid to lower cervical spine as detailed above. No significant change from most recent prior MRI.
== END | disposition home or self-care (01) ==
LOC: RADMRIMAIN 13:00
PROVIDERS: ATTEND Orthopaedic Surgery
DX: M43.12 Spondylolisthesis, cervical region (principal); M50.20 Other cervical disc displacement, unspecified cervical region; M47.22 Other spondylosis with radiculopathy, cervical region
CPT/HCPCS: 72141

== ENCOUNTER → 2023-11-26 | Outpatient (CLI) | payer OTHER ==
[2023-11-26 14:47] LABS: HCT 48.3 % (39.6-50.0); HGB 15.8 g/dL (13.0-17.0); MCH 29.4 pg (27.0-32.0); MCHC 32.7 g/dL (32.0-37.0); MCV 89.8 FL (80.0-97.0); Mean Platelet Volume 10.8 FL (9.5-12.2); NRBC Per 100 WBC 0 X 10*3/uL (0.00-0.01); Platelet Count 278 X 10*3/uL (140-440); RBC 5.38 X 10*6/uL (4.40-5.60); RDW 13.2 % (11.5-14.5); WBC 9.52 X 10*3/uL (4.50-10.00)
[2023-11-26 15:56] LABS: ALT 18 U/L (10-49); AST 13 U/L (14-35); Albumin 4.7 g/dL (3.8-4.9); Albumin/Globulin Ratio 1.68 Ratio (1.60-3.17); Alkaline Phosphatase 103 U/L (41-126); BUN/Creat Ratio 19.89 Ratio (12.00-20.00); Blood Urea Nitrogen 17.9 mg/dL (9.0-27.0); Calcium 9.7 mg/dL (8.7-10.3); Carbon Dioxide 29.5 mmol/L (21.6-31.8); Chloride 103 mmol/L (96-109); Globulin 2.8 g/dL (1.6-3.3); Glucose 88 mg/dL (70-110); Potassium 5.4 mmol/L (3.5-5.5); Sodium 143 mmol/L (135-145); Total Bilirubin 0.3 mg/dL (0.3-1.2); Total Protein 7.5 g/dL (6.2-8.2)
[2023-11-26 19:23] LABS: INR 0.98 sec (0.93-1.11); Prothrombin Time 10.6 sec (9.9-11.9)
== END | disposition home or self-care (01) ==
LOC: LABPAT 08:13
PROVIDERS: ATTEND Orthopaedic Surgery
DX: Z01.812 Encounter for preprocedural laboratory examination (principal); M50.20 Other cervical disc displacement, unspecified cervical region; M48.02 Spinal stenosis, cervical region; M54.12 Radiculopathy, cervical region; Z22.322 Carrier or suspected carrier of Methicillin resistant Staphylococcus aureus
CPT/HCPCS: 80053; 82306; 85027; 85610; 86850; 86900; 86901; 87070

== ENCOUNTER → 2024-03-24 | Outpatient (CLI) | payer OTHER | END | disposition home or self-care (01) | LOC: RADCTMAIN 08:06 | PROVIDERS: ATTEND Orthopaedic Surgery | DX: Z53.9 Procedure and treatment not carried out, unspecified reason (principal) ==